=== PATIENT | female | born 1970 | race Caucasian/White ===

== ENCOUNTER 2021-02-12 09:02 | Outpatient (RCR) | payer SELFPAY ==
[2021-02-12] VITALS (9 sets, daily range): BP systolic 107–120; BP diastolic 57–79; PULSE 79–97; TEMP 97.5–98.9
[~2021-02-12] VITALS: Ht 170.2 cm; Wt 71.0 kg
== END 2021-02-12 15:00 | disposition home or self-care (01) ==
LOC: EUO 09:02
DX: D64.9 Anemia, unspecified (principal); N92.1 Excessive and frequent menstruation with irregular cycle
CPT/HCPCS: P9016

== ENCOUNTER 2021-03-10 13:25 | Outpatient (RCR) | payer SELFPAY ==
[2021-03-10] VITALS (9 sets, daily range): BP systolic 110–123; BP diastolic 58–75; PULSE 85–110; TEMP 97.7–99.1
[~2021-03-10] VITALS: Ht 170.2 cm; Wt 68.0 kg
--- NOTE | 2021-03-10 17:35 | NUR ---
I assumed pt care at this time. Pt tolerated 1st transfusion with no problem. 2nd unit underway. no concerns at this time.
== END 2021-03-10 19:30 | disposition home or self-care (01) ==
LOC: EUO 13:25
DX: D64.9 Anemia, unspecified (principal); N92.1 Excessive and frequent menstruation with irregular cycle
CPT/HCPCS: J7050; P9016